=== PATIENT | female | born 1960 | race Caucasian/White ===

== ENCOUNTER 2022-08-27 20:09 | Inpatient (IN) | payer BC ==
[~2022-08-27 20:09] MED LIST: Iopamidol-370 76% 500 ML MDV (1 ML CHARGE) ONE
[2022-08-27] MEDS ORDERED: Furosemide 20 MG/2 ML VIAL ONE (20:40)
[2022-08-27] MEDS ORDERED: Furosemide 40 MG/4 ML VIAL ONE (20:40)
[2022-08-27] MEDS ORDERED: Ondansetron PF 4 MG/2 ML Vial ONE ×2 (21:01→21:08)
[2022-08-27] MEDS ORDERED: Morphine 4 MG/ML VIAL ONE ×2 (21:01→23:53)
[2022-08-27 21:19] LABS: Actual Bicarbonate (HCO3v) 27.1 mEq/L (22-28); Base Excess 4.3 mEq/L (-2.0 to +3.0); Chloride (VBG) 103 mmol/L (98-106); Hematocrit-VBG 36 % (36.0-47.0); Hemoglobin (Hb) 12.1 g/dL (11.7-16.0); pH (venous) 7.516 (7.32-7.43)
[2022-08-27 21:30] LABS: Bacteria/HPF None Seen HPF (None Seen); Bilirubin 2+ (Negative); Blood, Urine 1+ (Negative); CAUTI Indications for Culture Dysuria,urgency,freq; Calcium Oxalate Crystals Rare HPF (None Seen); Clarity Turbid (Clear); Glucose, Urine (Dipstick) Normal (Negative); Ketone, Urine Negative (Negative); Leukocyte Negative Leu/uL (Negative); Nitrite 2+ (Negative); Protein, Urine (Dipstick) 30 mg/dL (Neg-Trace); RBC/HPF 21-50 HPF (0-3); Specific Gravity, Urine 1.016 (1.002-1.036); Squamous Epithelial 0-3 HPF (0-3); Urobilinogen 6 mg/dL (Less than 2)
[2022-08-27 21:32] LABS: Urine Culture Reflex No No
[2022-08-27 21:33] LABS: #Eosinphils 0.1 thou/uL (0.0-0.7); #Monocytes 0.4 thou/uL (0.11-0.59); %Basophils 0.6 % (0.0-1.0); %Eosinophils 1.9 % (0.0-10.0); %Lymphocytes 34.1 % (21.0-51.0); %Monocytes 7.8 % (0.0-10.0); %Neutrophils 55.2 % (42.0-75.0); Hemoglobin 11.3 g/dL (12.0-16.0); Mean Corpuscular HGB CONC 32.7 g/dL (32.0-36.0); Mean Corpuscular Hemoglobin 28.5 pg (27.0-31.0); Mean Corpuscular Volume 87.2 fl (78.0-98.0); Mean Platelet Volume 9.7 fL (7.4-10.4); Platelet Count 217 10x3/uL (130-400); RBC Distribution Width 13.9 % (11.5-14.5); Red Blood Cell (RBC) Count 3.97 mill/uL (4.20-5.40); White Blood Cell (WBC) Count 5.4 10x3/uL (4.8-10.8)
[2022-08-27 21:42] LABS: ALT (SGPT) 31 U/L (8-55); AST (SGOT) 30 U/L (5-34); Albumin 3.7 g/dL (3.4-4.8); Alkaline Phosphatase 82 U/L (40-110); Anion Gap 12 mmol/L (10-20); BUN (Urea Nitrogen) 9 mg/dL (9.8-20.1); Bilirubin, Total 0.4 mg/dL (0.2-1.2); Calc. Creatinine Clearance 0 mL/min (70-130); Carbon Dioxide 28 mmol/L (23-31); Chloride 102 mmol/L (98-107); Estimated GFR 94; Globulin 3.1 g/dL (2.4-3.5); Glucose 103 mg/dL (80-115); Potassium 3.5 mmol/L (3.5-5.1); Protein, Total 6.8 g/dL (5.8-8.1); Sodium 138 mmol/L (136-145)
[2022-08-27] MEDS ORDERED: cefTRIAXone (ROCEPHIN) 2 GM VIAL ONE (23:13)
[2022-08-27] MEDS ORDERED: Azithromycin 500 MG VIAL ONE (23:53)
[2022-08-28] MEDS ORDERED: Acetaminophen 325 MG TAB PO PRN (00:52)
[2022-08-28] MEDS ORDERED: Acetaminophen 650 MG Suppository PR PRN (00:52)
[2022-08-28] MEDS: HYDROcodone/Acetaminophen 7.5/325 mg Tablet PO PRN ×2 (02:38→11:48)
[2022-08-28 02:55] VITALS: BMI 35.9
[2022-08-28] MEDS ORDERED: Dextrose 5% in Water 1,000 ML IV PRN (03:45)
[2022-08-28] MEDS ORDERED: Glucagon 1 MG/ML KIT IM PRN (03:45)
[2022-08-28] MEDS ORDERED: Dextrose 50% Abboject 50 ML SYRINGE IVP PRN (03:45)
[2022-08-28] MEDS ORDERED: HumaLOG 300 UNITS/3 ML VIAL SC PRN ×2 (03:45)
[2022-08-28 04:56] LABS: #Eosinphils 0.1 thou/uL (0.0-0.7); #Monocytes 0.4 thou/uL (0.11-0.59); #Neutrophils 2.8 thou/uL (1.40-6.50); %Basophils 0.4 % (0.0-1.0); %Eosinophils 2.7 % (0.0-10.0); %Lymphocytes 35.6 % (21.0-51.0); %Monocytes 6.8 % (0.0-10.0); %Neutrophils 54.3 % (42.0-75.0); Hemoglobin 10.5 g/dL (12.0-16.0); Mean Corpuscular HGB CONC 32.1 g/dL (32.0-36.0); Mean Corpuscular Hemoglobin 28.3 pg (27.0-31.0); Mean Corpuscular Volume 88.1 fl (78.0-98.0); Mean Platelet Volume 9.5 fL (7.4-10.4); Platelet Count 187 10x3/uL (130-400); Red Blood Cell (RBC) Count 3.71 mill/uL (4.20-5.40); White Blood Cell (WBC) Count 5.1 10x3/uL (4.8-10.8)
[2022-08-28 05:24] LABS: Anion Gap 12 mmol/L (10-20); BUN (Urea Nitrogen) 10 mg/dL (9.8-20.1); Calc. Creatinine Clearance 126 mL/min (70-130); Calcium 8.6 mg/dL (7.8-10.44); Carbon Dioxide 29 mmol/L (23-31); Chloride 101 mmol/L (98-107); Estimated GFR 91; Glucose 130 mg/dL (80-115); Sodium 139 mmol/L (136-145)
[2022-08-28] MEDS ORDERED: Furosemide 40 MG/4 ML VIAL SLOW IVP SCH ×3 (06:00→13:45)
[2022-08-28] MEDS ORDERED: Senokot 8.6 MG TAB PO PRN (09:15)
[2022-08-28] MEDS ORDERED: Phenazopyridine HCl 95 MG TAB PO PRN (09:15)
[2022-08-28] MEDS ORDERED: Phenazopyridine HCl 100 MG TAB PO PRN (09:21)
[2022-08-28] MEDS ORDERED: guaiFENesin ER 600 MG TAB PO SCH (10:26)
[2022-08-28] MEDS ORDERED: Potassium Chloride 20 MEQ TAB PO SCH (10:30)
[2022-08-28] MEDS ORDERED: Electrolyte Replacement Protocol 1 EACH FS SCH (11:45)
[2022-08-28] MEDS ORDERED: Potassium Chloride 10 MEQ in Premix Bag 1 BAG IVPB SCH (12:00)
[2022-08-28] MEDS: HYDROcodone/Acetaminophen 5/325 mg Tablet PO PRN (18:02)
[2022-08-28] MEDS: cefTRIAXone\\ROCEPHIN 1 GM in Sodium Chloride 0.9% 100 ML IVPB SCH (21:28)
[2022-08-28] MEDS: guaiFENesin ER 600 MG TAB PO SCH (21:29)
[2022-08-28] MEDS: Potassium Chloride 20 MEQ TAB PO SCH (21:29)
[2022-08-28] MEDS: Azithromycin 500 MG in Sodium Chloride 0.9% 250 ML 250 ML IVPB SCH (22:18)
[2022-08-29] MEDS: HYDROcodone/Acetaminophen 5/325 mg Tablet PO PRN (02:29)
[2022-08-29] MEDS ORDERED: HYDROcodone/Acetaminophen 5/325 mg Tablet PO PRN (02:41)
[2022-08-29] MEDS ORDERED: Morphine 2 MG/ML VIAL SLOW IVP PRN (09:23)
[2022-08-29] MEDS: Metoprolol Tartrate 25 MG TAB PO SCH (09:38)
[2022-08-29] MEDS: Docusate 100 MG CAP PO PRN (09:38)
[2022-08-29] MEDS: guaiFENesin ER 600 MG TAB PO SCH ×2 (09:38→20:52)
[2022-08-29] MEDS: Potassium Chloride 20 MEQ TAB PO SCH ×2 (09:38→20:52)
[2022-08-29] MEDS: Furosemide 40 MG/4 ML VIAL SLOW IVP SCH (09:39)
[2022-08-29 14:41] LABS: Calcium 9.6 mg/dL (7.8-10.44); Chloride 100 mmol/L (98-107); Potassium 3.4 mmol/L (3.5-5.1); Sodium 139 mmol/L (136-145)
[2022-08-29 14:42] LABS: Glucose 119 mg/dL (80-115)
[2022-08-29 14:43] LABS: Anion Gap 12 mmol/L (10-20); Carbon Dioxide 30 mmol/L (23-31)
[2022-08-29 14:45] LABS: Calc. Creatinine Clearance 143 mL/min (70-130); Estimated GFR 99
[2022-08-29 14:46] LABS: BUN (Urea Nitrogen) 10 mg/dL (9.8-20.1)
[2022-08-29] MEDS: oxyCODONE/Acetaminophen 5 mg/325 mg Tablet PO PRN ×2 (14:54→20:51)
[2022-08-29] MEDS: Phenazopyridine HCl 100 MG TAB PO SCH ×2 (14:55→20:53)
[2022-08-29] MEDS ORDERED: Potassium Chloride 20 MEQ TAB PO SCH (17:15)
[2022-08-29] MEDS: Azithromycin 500 MG in Sodium Chloride 0.9% 250 ML 250 ML IVPB SCH (20:52)
[2022-08-29] MEDS: cefTRIAXone\\ROCEPHIN 1 GM in Sodium Chloride 0.9% 100 ML IVPB SCH (20:59)
[2022-08-30] MEDS: oxyCODONE/Acetaminophen 5 mg/325 mg Tablet PO PRN ×3 (04:26→14:13)
[2022-08-30 04:31] LABS: #Eosinphils 0.1 thou/uL (0.0-0.7); #Monocytes 0.3 thou/uL (0.11-0.59); #Neutrophils 2.2 thou/uL (1.40-6.50); %Basophils 0.6 % (0.0-1.0); %Lymphocytes 42.7 % (21.0-51.0); %Monocytes 6.4 % (0.0-10.0); %Neutrophils 47.1 % (42.0-75.0); Hemoglobin 11.1 g/dL (12.0-16.0); Mean Corpuscular HGB CONC 32.3 g/dL (32.0-36.0); Mean Corpuscular Hemoglobin 28.1 pg (27.0-31.0); Mean Corpuscular Volume 87.1 fl (78.0-98.0); Mean Platelet Volume 9.5 fL (7.4-10.4); Platelet Count 196 10x3/uL (130-400); RBC Distribution Width 13.8 % (11.5-14.5); Red Blood Cell (RBC) Count 3.95 mill/uL (4.20-5.40); White Blood Cell (WBC) Count 4.7 10x3/uL (4.8-10.8)
[2022-08-30 05:25] LABS: Anion Gap 14 mmol/L (10-20); BUN (Urea Nitrogen) 11 mg/dL (9.8-20.1); Calc. Creatinine Clearance 155 mL/min (70-130); Carbon Dioxide 27 mmol/L (23-31); Chloride 103 mmol/L (98-107); Estimated GFR 101; Glucose 133 mg/dL (80-115); Potassium 3.4 mmol/L (3.5-5.1); Sodium 141 mmol/L (136-145)
[2022-08-30] MEDS ORDERED: Potassium Chloride 20 MEQ TAB PO SCH (08:00)
[2022-08-30] MEDS ORDERED: Magnesium 2 GM/50 ML(in water) 2 GM in Premix Bag 1 BAG IVPB SCH (08:00)
[2022-08-30] MEDS: Metoprolol Tartrate 25 MG TAB PO SCH (08:32)
[2022-08-30] MEDS: guaiFENesin ER 600 MG TAB PO SCH ×2 (08:32→20:31)
[2022-08-30] MEDS: Potassium Chloride 20 MEQ TAB PO SCH ×2 (08:32→20:32)
[2022-08-30] MEDS: Phenazopyridine HCl 100 MG TAB PO SCH ×3 (08:33→20:31)
[2022-08-30] MEDS: Furosemide 40 MG/4 ML VIAL SLOW IVP SCH (08:33)
[2022-08-30] MEDS: Docusate 100 MG CAP PO PRN (08:35)
[2022-08-30] MEDS: Senokot 8.6 MG TAB PO PRN (10:39)
[2022-08-30 18:26] LABS: Bilirubin 2+ (Negative); Blood, Urine Negative (Negative); CAUTI Indications for Culture Dysuria,urgency,freq; Clarity Clear (Clear); Glucose, Urine (Dipstick) Normal (Negative); Ketone, Urine Negative (Negative); Leukocyte Negative Leu/uL (Negative); Nitrite 2+ (Negative); Protein, Urine (Dipstick) 20 mg/dL (Neg-Trace); Specific Gravity, Urine 1.025 (1.002-1.036); Squamous Epithelial 0-3 HPF (0-3); WBC/HPF 0-3 HPF (0-3); pH, Urine 6.5 (5.0-9.0)
[2022-08-30 18:27] LABS: Bacteria/HPF Rare-Few HPF (None Seen)
[2022-08-30 18:30] LABS: Urine Culture Reflex No No
[2022-08-30] MEDS: Azithromycin 500 MG in Sodium Chloride 0.9% 250 ML 250 ML IVPB SCH (20:31)
[2022-08-30] MEDS: cefTRIAXone\\ROCEPHIN 1 GM in Sodium Chloride 0.9% 100 ML IVPB SCH (20:32)
[2022-08-31] MEDS: HYDROcodone/Acetaminophen 5/325 mg Tablet PO PRN ×5 (00:28→21:15)
[2022-08-31 05:05] LABS: #Eosinphils 0.1 thou/uL (0.0-0.7); #Monocytes 0.4 thou/uL (0.11-0.59); #Neutrophils 2.8 thou/uL (1.40-6.50); %Basophils 0.6 % (0.0-1.0); %Eosinophils 1.7 % (0.0-10.0); %Lymphocytes 32.1 % (21.0-51.0); %Monocytes 7.7 % (0.0-10.0); %Neutrophils 57.7 % (42.0-75.0); Hemoglobin 10.8 g/dL (12.0-16.0); Mean Corpuscular HGB CONC 32.3 g/dL (32.0-36.0); Mean Corpuscular Hemoglobin 28.5 pg (27.0-31.0); Mean Corpuscular Volume 88.1 fl (78.0-98.0); Mean Platelet Volume 9.5 fL (7.4-10.4); Platelet Count 197 10x3/uL (130-400); Red Blood Cell (RBC) Count 3.79 mill/uL (4.20-5.40); White Blood Cell (WBC) Count 4.8 10x3/uL (4.8-10.8)
[2022-08-31 06:09] LABS: Anion Gap 14 mmol/L (10-20); BUN (Urea Nitrogen) 13 mg/dL (9.8-20.1); Calc. Creatinine Clearance 161 mL/min (70-130); Calcium 8.6 mg/dL (7.8-10.44); Carbon Dioxide 26 mmol/L (23-31); Chloride 107 mmol/L (98-107); Estimated GFR 102; Glucose 95 mg/dL (80-115); Potassium 4.1 mmol/L (3.5-5.1); Sodium 143 mmol/L (136-145)
[2022-08-31] MEDS: Metoprolol Tartrate 25 MG TAB PO SCH (09:53)
[2022-08-31] MEDS: guaiFENesin ER 600 MG TAB PO SCH ×2 (09:53→20:13)
[2022-08-31] MEDS: Furosemide 40 MG/4 ML VIAL SLOW IVP SCH (09:53)
[2022-08-31] MEDS: Phenazopyridine HCl 100 MG TAB PO SCH ×2 (09:54→15:01)
[2022-08-31] MEDS: Potassium Chloride 20 MEQ TAB PO SCH ×2 (09:55→20:13)
[2022-08-31] MEDS: Senokot 8.6 MG TAB PO PRN (09:56)
[2022-08-31] MEDS: cefTRIAXone\\ROCEPHIN 1 GM in Sodium Chloride 0.9% 100 ML IVPB SCH (20:12)
[2022-08-31] MEDS: Azithromycin 500 MG in Sodium Chloride 0.9% 250 ML 250 ML IVPB SCH (22:00)
[2022-09-01] MEDS: HYDROcodone/Acetaminophen 5/325 mg Tablet PO PRN ×4 (04:32→22:53)
[2022-09-01 04:44] LABS: #Eosinphils 0.1 thou/uL (0.0-0.7); #Monocytes 0.3 thou/uL (0.11-0.59); #Neutrophils 2.1 thou/uL (1.40-6.50); %Basophils 0.7 % (0.0-1.0); %Eosinophils 1.1 % (0.0-10.0); %Lymphocytes 42.9 % (21.0-51.0); %Monocytes 7.4 % (0.0-10.0); %Neutrophils 47.4 % (42.0-75.0); Hemoglobin 11.2 g/dL (12.0-16.0); Mean Corpuscular HGB CONC 31.7 g/dL (32.0-36.0); Mean Corpuscular Hemoglobin 28.6 pg (27.0-31.0); Mean Corpuscular Volume 90.1 fl (78.0-98.0); Mean Platelet Volume 9.8 fL (7.4-10.4); Platelet Count 199 10x3/uL (130-400); RBC Distribution Width 14.1 % (11.5-14.5); Red Blood Cell (RBC) Count 3.92 mill/uL (4.20-5.40); White Blood Cell (WBC) Count 4.4 10x3/uL (4.8-10.8)
[2022-09-01 05:04] LABS: Anion Gap 12 mmol/L (10-20); BUN (Urea Nitrogen) 13 mg/dL (9.8-20.1); Calc. Creatinine Clearance 166 mL/min (70-130); Calcium 8.9 mg/dL (7.8-10.44); Carbon Dioxide 28 mmol/L (23-31); Chloride 105 mmol/L (98-107); Estimated GFR 103; Glucose 89 mg/dL (80-115); Sodium 141 mmol/L (136-145)
[2022-09-01] MEDS ORDERED: Sodium Chloride 0.9% 500 ML IV SCH (08:00)
[2022-09-01] MEDS: Ondansetron PF 4 MG/2 ML Vial IVP PRN ×2 (08:17→15:13)
[2022-09-01] MEDS ORDERED: Bisacodyl 10 MG SUPP PR SCH (09:00)
[2022-09-01] MEDS: Docusate 100 MG CAP PO PRN (10:06)
[2022-09-01] MEDS: Furosemide 40 MG TAB PO SCH (10:06)
[2022-09-01] MEDS: Metoprolol Tartrate 25 MG TAB PO SCH (10:06)
[2022-09-01] MEDS: Senokot 8.6 MG TAB PO PRN (10:06)
[2022-09-01] MEDS: guaiFENesin ER 600 MG TAB PO SCH ×2 (10:06→21:44)
[2022-09-01] MEDS: Potassium Chloride 20 MEQ TAB PO SCH ×2 (10:06→21:44)
[2022-09-01] MEDS: cefTRIAXone\\ROCEPHIN 1 GM in Sodium Chloride 0.9% 100 ML IVPB SCH (21:45)
[2022-09-01] MEDS: Azithromycin 500 MG in Sodium Chloride 0.9% 250 ML 250 ML IVPB SCH (22:49)
[2022-09-02] MEDS: HYDROcodone/Acetaminophen 5/325 mg Tablet PO PRN ×3 (03:21→18:02)
[2022-09-02] MEDS: Ondansetron PF 4 MG/2 ML Vial IVP PRN ×2 (06:57→11:29)
[2022-09-02] MEDS: Furosemide 40 MG TAB PO SCH (10:09)
[2022-09-02] MEDS: Metoprolol Tartrate 25 MG TAB PO SCH (10:09)
[2022-09-02] MEDS: Potassium Chloride 20 MEQ TAB PO SCH ×2 (10:09→20:17)
[2022-09-02] MEDS: guaiFENesin ER 600 MG TAB PO SCH ×2 (10:12→20:17)
[2022-09-02] MEDS ORDERED: Oxybutynin ER 5 MG TAB PO SCH (14:00)
[2022-09-02] MEDS ORDERED: Phenazopyridine HCl 100 MG TAB PO SCH (15:00)
[2022-09-02] MEDS: Phenazopyridine HCl 100 MG TAB PO SCH (17:28)
[2022-09-02] MEDS: cefTRIAXone\\ROCEPHIN 1 GM in Sodium Chloride 0.9% 100 ML IVPB SCH (20:17)
[2022-09-03] MEDS: HYDROcodone/Acetaminophen 5/325 mg Tablet PO PRN ×5 (00:53→21:55)
[2022-09-03 05:37] LABS: #Eosinphils 0.1 thou/uL (0.0-0.7); #Monocytes 0.4 thou/uL (0.11-0.59); #Neutrophils 2.9 thou/uL (1.40-6.50); %Basophils 0.5 % (0.0-1.0); %Eosinophils 0.9 % (0.0-10.0); %Lymphocytes 38.1 % (21.0-51.0); %Monocytes 7.3 % (0.0-10.0); %Neutrophils 53.2 % (42.0-75.0); Hemoglobin 11.8 g/dL (12.0-16.0); Mean Corpuscular HGB CONC 32.4 g/dL (32.0-36.0); Mean Corpuscular Hemoglobin 28.5 pg (27.0-31.0); Mean Corpuscular Volume 87.9 fl (78.0-98.0); Mean Platelet Volume 9.7 fL (7.4-10.4); Platelet Count 222 10x3/uL (130-400); Red Blood Cell (RBC) Count 4.14 mill/uL (4.20-5.40); White Blood Cell (WBC) Count 5.5 10x3/uL (4.8-10.8)
[2022-09-03 06:01] LABS: Anion Gap 16 mmol/L (10-20); BUN (Urea Nitrogen) 14 mg/dL (9.8-20.1); Calc. Creatinine Clearance 140 mL/min (70-130); Calcium 9.7 mg/dL (7.8-10.44); Carbon Dioxide 29 mmol/L (23-31); Chloride 100 mmol/L (98-107); Estimated GFR 98; Glucose 110 mg/dL (80-115); Potassium 3.5 mmol/L (3.5-5.1); Sodium 141 mmol/L (136-145)
[2022-09-03] MEDS ORDERED: Potassium Chloride 20 MEQ TAB PO SCH (08:00)
[2022-09-03] MEDS: Furosemide 40 MG TAB PO SCH (10:03)
[2022-09-03] MEDS: Potassium Chloride 20 MEQ TAB PO SCH ×2 (10:03→16:01)
[2022-09-03] MEDS: guaiFENesin ER 600 MG TAB PO SCH ×2 (10:03→21:48)
[2022-09-03] MEDS: Metoprolol Tartrate 25 MG TAB PO SCH (10:04)
[2022-09-03] MEDS: Oxybutynin ER 5 MG TAB PO SCH ×2 (10:04→10:20)
[2022-09-03] MEDS: Phenazopyridine HCl 100 MG TAB PO SCH ×3 (10:07→18:19)
[2022-09-03] MEDS: Sulfameth/Trimethoprim DS 800-160mg TAB PO SCH (21:47)
[2022-09-04] MEDS: HYDROcodone/Acetaminophen 5/325 mg Tablet PO PRN ×3 (03:42→20:03)
[2022-09-04 05:37] LABS: #Eosinphils 0.1 thou/uL (0.0-0.7); #Monocytes 0.4 thou/uL (0.11-0.59); #Neutrophils 2.5 thou/uL (1.40-6.50); %Basophils 0.9 % (0.0-1.0); %Eosinophils 1.1 % (0.0-10.0); %Lymphocytes 36.8 % (21.0-51.0); %Monocytes 7.9 % (0.0-10.0); %Neutrophils 53.1 % (42.0-75.0); Hemoglobin 11.9 g/dL (12.0-16.0); Mean Corpuscular HGB CONC 32.1 g/dL (32.0-36.0); Mean Corpuscular Hemoglobin 28.2 pg (27.0-31.0); Mean Corpuscular Volume 87.9 fl (78.0-98.0); Mean Platelet Volume 9.8 fL (7.4-10.4); Platelet Count 202 10x3/uL (130-400); RBC Distribution Width 13.9 % (11.5-14.5); Red Blood Cell (RBC) Count 4.22 mill/uL (4.20-5.40); White Blood Cell (WBC) Count 4.7 10x3/uL (4.8-10.8)
[2022-09-04 05:59] LABS: Anion Gap 16 mmol/L (10-20); BUN (Urea Nitrogen) 13 mg/dL (9.8-20.1); Calc. Creatinine Clearance 131 mL/min (70-130); Calcium 9.3 mg/dL (7.8-10.44); Carbon Dioxide 26 mmol/L (23-31); Chloride 102 mmol/L (98-107); Estimated GFR 93; Glucose 100 mg/dL (80-115); Potassium 3.6 mmol/L (3.5-5.1); Sodium 140 mmol/L (136-145)
[2022-09-04] MEDS: Oxybutynin ER 5 MG TAB PO SCH (08:22)
[2022-09-04] MEDS: guaiFENesin ER 600 MG TAB PO SCH ×2 (08:38→20:03)
[2022-09-04] MEDS: Phenazopyridine HCl 100 MG TAB PO SCH ×3 (08:40→17:52)
[2022-09-04] MEDS: Furosemide 40 MG TAB PO SCH (08:40)
[2022-09-04] MEDS: Metoprolol Tartrate 25 MG TAB PO SCH (08:40)
[2022-09-04] MEDS: Potassium Chloride 20 MEQ TAB PO SCH ×2 (08:40→17:52)
[2022-09-04] MEDS: Sulfameth/Trimethoprim DS 800-160mg TAB PO SCH ×2 (08:48→20:03)
[2022-09-04] MEDS ORDERED: Potassium Chloride 20 MEQ TAB PO SCH (15:15)
[2022-09-04] MEDS ORDERED: Bisacodyl 10 MG SUPP PR SCH (15:15)
[2022-09-04] MEDS: Senokot 8.6 MG TAB PO PRN (15:21)
[2022-09-05] MEDS: HYDROcodone/Acetaminophen 5/325 mg Tablet PO PRN ×4 (06:11→23:47)
[2022-09-05] MEDS: guaiFENesin ER 600 MG TAB PO SCH ×2 (08:39→21:35)
[2022-09-05] MEDS: Potassium Chloride 20 MEQ TAB PO SCH ×2 (08:39→18:07)
[2022-09-05] MEDS: Furosemide 40 MG TAB PO SCH (08:40)
[2022-09-05] MEDS: Sulfameth/Trimethoprim DS 800-160mg TAB PO SCH ×2 (08:40→21:35)
[2022-09-05] MEDS: Phenazopyridine HCl 100 MG TAB PO SCH ×3 (08:40→18:08)
[2022-09-05] MEDS: Oxybutynin ER 5 MG TAB PO SCH (08:40)
[2022-09-05] MEDS: Ondansetron PF 4 MG/2 ML Vial IVP PRN (10:40)
[2022-09-06] MEDS: HYDROcodone/Acetaminophen 5/325 mg Tablet PO PRN ×2 (06:08→14:35)
[2022-09-06] MEDS: Potassium Chloride 20 MEQ TAB PO SCH ×2 (08:50→17:38)
[2022-09-06] MEDS: Furosemide 40 MG TAB PO SCH (08:51)
[2022-09-06] MEDS: Oxybutynin ER 5 MG TAB PO SCH (08:51)
[2022-09-06] MEDS: Sulfameth/Trimethoprim DS 800-160mg TAB PO SCH (08:51)
[2022-09-06] MEDS: guaiFENesin ER 600 MG TAB PO SCH (08:51)
[2022-09-06] MEDS: Metoprolol Tartrate 25 MG TAB PO SCH (08:51)
[2022-09-06] MEDS: Phenazopyridine HCl 100 MG TAB PO SCH ×3 (08:51→17:38)
[2022-09-06] MEDS ORDERED: Bisacodyl 10 MG SUPP PR PRN (13:10)
[2022-09-06 15:32] VITALS: BP 115/63; TEMP 98.7
== END 2022-09-06 18:41 | DRG 193 ==
LOC: ERS 20:09 → 2NO 23:55 → OBSVTOIN 08-29 15:10
PROVIDERS: ADMIT Student in an Organized Health Care Education/Training Program; ATTEND Hospitalist
PROC: 4A043R1 Measurement of Venous Saturation, Peripheral, Percutaneous Approach (ICD-10-PCS; principal; 2022-08-27)
DX: J18.9 Pneumonia, unspecified organism (principal); I50.33 Acute on chronic diastolic (congestive) heart failure; J96.21 Acute and chronic respiratory failure with hypoxia; T83.511A Infection and inflammatory reaction due to indwelling urethral catheter, initial encounter; E87.1 Hypo-osmolality and hyponatremia; G37.9 Demyelinating disease of central nervous system, unspecified; I11.0 Hypertensive heart disease with heart failure; E11.9 Type 2 diabetes mellitus without complications; E87.6 Hypokalemia; G47.33 Obstructive sleep apnea (adult) (pediatric); E66.01 Morbid (severe) obesity due to excess calories; I25.10 Atherosclerotic heart disease of native coronary artery without angina pectoris; R53.81 Other malaise; Z88.8 Allergy status to other drugs, medicaments and biological substances; Z88.1 Allergy status to other antibiotic agents; Z79.899 Other long term (current) drug therapy; Z90.49 Acquired absence of other specified parts of digestive tract; Z95.5 Presence of coronary angioplasty implant and graft; Z68.36 Body mass index [BMI] 36.0-36.9, adult; Z86.16 Personal history of COVID-19; Z87.01 Personal history of pneumonia (recurrent); Z74.01 Bed confinement status
CPT/HCPCS: 36415; 36416; 71045; 74177; 80048; 80053; 81001; 82805; 83605; 83735; 83880; 84145; 84443; 84484; 85025; 87040; 87077; 87086; 87186; 93005; 93306; 96365; 96366; 96367; 96372; 96375; 96376; G0378; J0456; J0696; J1650; J1940; J2270; J2272; J2405; J3475; J3480; J3490; J7050; Q9967